=== PATIENT | female | born 1970 | race Caucasian/White ===

== ENCOUNTER 2017-04-27 19:22 | Emergency (ER) | payer BC ==
[2017-04-27 19:36] VITALS: BP 147/89
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
[2017-04-27] MEDS ORDERED: Ciprofloxacin TAB* 500 MG PO ONE (20:42)
[2017-04-27] MEDS ORDERED: metroNIDAZOLE TAB* 250 MG PO ONE (20:43)
[2017-04-28 10:38] LABS: ABS Basophils 0 10^3/ul (0-0.2); ABS Eosinophils 0.1 10^3/ul (0-0.6); ABS Lymphocytes 1.8 10^3/ul (1.0-4.8); ABS Monocytes 0.4 10^3/ul (0-0.8); ABS Neutrophils 4.8 10^3/ul (1.5-7.7); ABS Nucleated RBC 0 10^3/ul; Eosinophil % 0.7 % (0-6); Hematocrit 36 % (35-47); Hemoglobin 12.4 g/dl (12.0-16.0); Lymphocyte % 25.2 % (25-47); Mean Corpuscular HGB Conc 34 g/dl (31-36); Mean Corpuscular Hemoglobin 30 pg (27-31); Mean Corpuscular Volume 88 fL (80-97); Mean Platelet Volume 8 um3 (7.4-10.4); Nucleated Red Blood Cells % 0.1; Platelet Count 304 10^3/ul (150-450); Red Blood Count 4.11 10^6/ul (4.0-5.4); Red Cell Distribution Width 13 % (10.5-15); White Blood Count 7.2 10^3/ul (3.5-10.8)
[2017-04-28 10:58] LABS: EGFR Non-African American 80.7 (>60)
== END 2017-04-27 20:52 | disposition home or self-care (01) ==
LOC: UCEAST 19:22
DX: R19.7 Diarrhea, unspecified (principal); R10.30 Lower abdominal pain, unspecified
CPT/HCPCS: 36415; 80053; 85025; 99212; A9270-GY; G0463

== ENCOUNTER 2017-09-25 21:11 | Emergency (ER) | payer BC ==
[2017-09-25 21:47] VITALS: BP 138/82
--- NOTE | 2017-09-25 22:03 | UC ---
Upper Extremity HPI - HPI Summary HPI Summary: This is Kaylyn pak, documenting for attending, Nilda Velez MD. This patient is a 46 year old F presenting to [facility] with a chief complaint of right elbow pain after she hit her elbow about 8 days ago on a porcelain tub while cleaning. Pain is 9/10 in severity. Pain is worsened with pressure. Reports numbness and tingling in hand and fingers. - History of Current Complaint Chief Complaint: UCUpperExtremity Stated Complaint: ELBOW INJURY,NUMBNESS Hx Obtained From: Patient Hx Last Menstrual Period: 04/27/2017 Onset/Duration: Lasting Weeks, Still Present Pain Intensity: 9 Pain Scale Used: 0-10 Numeric Location Of Pain: Is Discrete @ - right elbow Aggravating Factor(s): Other - pressure Associated Signs And Symptoms: Positive: Bruising, Numbness/Tingling - Allergies/Home Medications Allergies/Adverse Reactions: Allergies Allergy/AdvReac Type Severity Reaction Status Date / Time No Known Allergies Allergy Verified 09/25/17 21:48 PMH/Surg Hx/FS Hx/Imm Hx Endocrine History: Hypothyroidism Other History Of: Negative For: HIV, Hepatitis B, Hepatitis C, Anticoagulant Therapy - Surgical History Surgical History: Yes Surgery Procedure, Year, and Place: c-sections x2 - Family History Known Family History: Positive: Other - cancer - grandmother Negative: Cardiac Disease, Hypertension, Diabetes - Social History Alcohol Use: Rare Substance Use Type: None Smoking Status (MU): Never Smoked Tobacco - Immunization History Most Recent Influenza Vaccination: never Review of Systems Musculoskeletal: Myalgia - right elbow pain Neurological: Numbness - right hand and fingers All Other Systems Reviewed And Are Negative: Yes Physical Exam - Summary Physical Exam Summary: Appearance: Well-appearing, Well-nourished Skin: Warm, discoloration of ecchymosis over right olecranon Eyes: Normal ENT: Normal Neck: Supple, nontender Respiratory: Clear to auscultation Cardiovascular: Regular rate, regular rhythm. Normal S1, S2. Abdomen: Soft, nontender Musculoskeletal: Strength/ROM Intact, Mild swelling and Moderate TTP over right olecranon with surrounding discoloration of ecchymosis with numbness and tingling in fingers, when palpated around right ulnar nerve Neurological: A&Ox3, reported numbness and tingling in 3 and 1/2 right fingers Psychiatric: Normal General: No acute distress Triage Information Reviewed: Yes Vital Signs: Initial Vital Signs Temp 98.3 F 09/25/17 21:42 Pulse 76 09/25/17 21:42 Resp 16 09/25/17 21:42 BP 138/82 09/25/17 21:42 Pulse Ox 100 09/25/17 21:42 Vital Signs Reviewed: Yes Diagnostics - Radiology RIGHT ELBOW XR Radiology Interpretation Completed By: ED Physician - Negative for fracture. Upper Extremity Course/Dx - Course Course Of Treatment: XR of right elbow neg for fx or dislocation ( per my wet read at 10:30-11pm on 09/24, pt was not pleased and worried about "something being missed". So I checked official read this AM and radiologist also read NO fx noted, +soft tissue swelling. Called pt this AM -via nurse Nerissa- (to tell pt the official results as pt was irate and worried about "being missed" last night). My conclusion via deduction of DDX is that her elbow pain may be trauma related with brewing bursitis with mild ulnar nerve injury, [facility], f/u PCP if pain persists. - Differential Dx/Diagnosis Provider Diagnoses: R olecranon contusion, right ulnar nerve neuropathy Discharge - Sign-Out/Discharge Documenting (check all that apply): Patient Departure - Discharge Plan Condition: Stable Disposition: HOME Patient Education Materials: Elbow Bursitis (ED), Elbow Sprain (ED) Referrals: Georgi Duran MD [Primary Care Provider] - - Billing Disposition and Condition Condition: STABLE Disposition: Home
--- NOTE | 2017-09-26 09:08 | RAD ---
INDICATION: RIGHT elbow pain post fall one week ago. COMPARISON: No relevant prior exams available on the [facility] PACS for comparison. TECHNIQUE: AP, lateral, and oblique views RIGHT elbow. REPORT AND IMPRESSION: #. Normal articular alignment. Preserved joint spaces without significant arthropathic change. #. Negative for fat pad displacement to indicate effusion. #. No cortical disruption or suspicious trabecular irregularity to suggest fracture. #. Mild to moderate soft tissue swelling over the dorsal aspect superficial to the olecranon process. Correlate for potential soft tissue plane hematoma, cellulitis, or olecranon bursitis.
== END 2017-09-25 23:05 | disposition home or self-care (01) ==
LOC: UCEAST 21:11
DX: S50.01XA Contusion of right elbow, initial encounter (principal); W22.09XA Striking against other stationary object, initial encounter; Y93.E9 Activity, other interior property and clothing maintenance; Y92.002 Bathroom of unspecified non-institutional (private) residence as the place of occurrence of the external cause; G56.21 Lesion of ulnar nerve, right upper limb
CPT/HCPCS: 99211; G0463

== ENCOUNTER 2019-05-18 08:51 | Emergency (ER) | payer BC ==
[2019-05-18 09:00] VITALS: BP 123/71
[2019-05-18 10:05] LABS: Influenza A Molecular Negative (Negative); Influenza B Molecular Negative (Negative)
--- NOTE | 2019-05-18 10:08 | UC ---
Throat Pain/Nasal Tim HPI - HPI Summary HPI Summary: 40-year-old female presenting with "feeling sick" 6 days. Patient states she has had a sore throat as well but it has worsened. States she would like to get a strep test here. Denies nasal congestion and cough. Denies fever and chills. Denies nausea and vomiting. Normal appetite. Denies taking anything for symptom relief. - History of Current Complaint Chief Complaint: UCGeneralIllness Stated Complaint: SORE THROAT Hx Obtained From: Patient Hx Last Menstrual Period: 05/13/19 Pain Intensity: 6 Pain Scale Used: 0-10 Numeric - Allergies/Home Medications Allergies/Adverse Reactions: Allergies Allergy/AdvReac Type Severity Reaction Status Date / Time No Known Allergies Allergy Verified 05/18/19 09:00 Home Medications: Home Medications Methylphenidate TAB* [Ritalin TAB*] 20 mg PO QID 10/15/12 [History Confirmed 02/24] Sertraline* [Zoloft*] 250 mg PO DAILY 10/15/12 [History Confirmed 05/18/19] traZODone TAB* [Desyrel TAB*] 100 mg PO DAILY 10/15/12 [History Confirmed ] buPROPion TAB* [Wellbutrin TAB*] 150 mg PO DAILY 10/12/15 [History Confirmed 02/24] Thyroid [[place] Thyroid] 60 mg PO BID 06/25/16 [History Confirmed 05/18/19] lamoTRIgine [Lamotrigine] 75 mg PO DAILY 04/27/17 [History Confirmed 05/18/19] PMH/Surg Hx/FS Hx/Imm Hx Endocrine History: Hypothyroidism Other History Of: Negative For: HIV, Hepatitis B, Hepatitis C, Anticoagulant Therapy - Surgical History Surgical History: Yes Surgery Procedure, Year, and Place: c-sections x2 - Family History Known Family History: Positive: None, Other - cancer - grandmother Negative: Cardiac Disease, Hypertension, Diabetes - Social History Alcohol Use: Rare Substance Use Type: None Smoking Status (MU): Never Smoked Tobacco - Immunization History Most Recent Influenza Vaccination: never Review of Systems All Other Systems Reviewed And Are Negative: Yes Constitutional: Positive: Negative ENT: Positive: Sore Throat Respiratory: Positive: Negative Cardiovascular: Positive: Negative Gastrointestinal: Positive: Negative Musculoskeletal: Positive: Negative Neurological/Mental Status: Positive: Negative Physical Exam - Summary Physical Exam Summary: Vital Signs Reviewed: Yes A+Ox3, no distress Eyes: Conjunctiva Clear ENT: Hearing grossly normal, TM x 2 clear, moist, uvula midline, no exudate, no erythema Neck: Positive: Supple Respiratory: Positive: No respiratory distress, No accessory muscle use + CTA throughout no w/r Cardiovascular: RRR nl s1, s2 no m/r Musculoskeletal Exam: STRANGE x 4 without difficulty Neurological: Positive: Alert Psychological: Positive: age appropriate behavior Skin: Positive: no rash, no ecchymosis Vital Signs: Initial Vital Signs Temp 98.4 F 05/18/19 08:57 Pulse 84 05/18/19 08:57 Resp 16 05/18/19 08:57 BP 123/71 05/18/19 08:57 Pulse Ox 99 05/18/19 08:57 Lab Results 05/18/19 05/18/19 Range/Units 09:11 09:53 Influenza A (Rapid) Negative (Negative) Influenza B (Rapid) Negative (Negative) Group A Strep Rapid Negative (Negative) Throat Pain/Nasal Course/Dx - Course Course Of Treatment: Negative rapid strep and flu. Discussed viral illness patient and educated on symptomatic treatment. Instructed to follow up with PCP if symptoms persist. Patient voiced understanding and agreed with treatment plan. - Differential Dx/Diagnosis Differential Diagnosis/HQI/PQRI: Influenza, Pharyngitis, URI Provider Diagnosis: Pharyngitis Discharge ED - Sign-Out/Discharge Documenting (check all that apply): Patient Departure All imaging exams completed and their final reports reviewed: No Studies - Discharge Plan Condition: Stable Disposition: HOME Patient Education Materials: Pharyngitis (ED) Forms: *Work Release Referrals: Yarelis Ray MD [Primary Care Provider] - If Needed Additional Instructions: As discussed, you tested negative for strep and flu today. You may take ibuprofen and/or tylenol as directed for fever and pain relief. You may use over the counter throat sprays or lozenges for symptomatic relief. Get plenty of rest and fluids. Follow-up with your primary care provider if symptoms do not improve within 7 days. - Billing Disposition and Condition Condition: STABLE Disposition: Home
== END 2019-05-18 10:36 | disposition home or self-care (01) ==
LOC: UCEAST 08:51
DX: J02.9 Acute pharyngitis, unspecified (principal); E03.9 Hypothyroidism, unspecified; Z79.899 Other long term (current) drug therapy
CPT/HCPCS: 87651; 99211; G0463